=== PATIENT | female | born 1995 | race Caucasian/White ===

== ENCOUNTER 2017-04-03 09:08 | Emergency (ER) | payer BC ==
[2017-04-03 09:45] VITALS: BP 123/74
--- NOTE | 2017-04-03 10:03 | UC ---
Respiratory Complaint HPI - HPI Summary HPI Summary: chest congestion / cough x 1 week no fever, no chills, - History of Current Complaint Chief Complaint: UCRespiratory Stated Complaint: COUGH,CHEST CONGESTION Time Seen by Provider: 04/03/17 09:53 Hx Obtained From: Patient Hx Last Menstrual Period: unknown, mirena IUD Onset/Duration: Gradual Onset, Lasting Weeks - 1 Timing: Constant Severity Initially: Moderate Severity Currently: Moderate Character: Cough: Nonproductive Aggravating Factors: Exertion, Deep Breaths Alleviating Factors: Nothing Associated Signs And Symptoms: Negative: Fever, Chills, Dizziness, Calf Pain, Calf Swelling, URI, Nasal Congestion, Hoarseness, Sinus Discomfort - Allergies/Home Medications Allergies/Adverse Reactions: Allergies Allergy/AdvReac Type Severity Reaction Status Date / Time No Known Allergies Allergy Verified 04/03/17 09:45 Home Medications: Home Medications Levonorgestrel (Iud) [Mirena IUD] 04/03/17 [History] PMH/Surg Hx/FS Hx/Imm Hx Previously Healthy: Yes Other History Of: Negative For: Anticoagulant Therapy - Surgical History Surgical History: None - Family History Known Family History: Negative: Diabetes - Social History Alcohol Use: None Substance Use Type: None Smoking Status (MU): Never Smoked Tobacco - Immunization History Most Recent Influenza Vaccination: yes 2017 Review of Systems Constitutional: Negative Skin: Negative Eyes: Negative ENT: Negative Respiratory: Cough Cardiovascular: Negative Gastrointestinal: Negative Is Patient Immunocompromised?: No All Other Systems Reviewed And Are Negative: Yes Physical Exam Triage Information Reviewed: Yes Appearance: Well-Appearing, No Pain Distress, Well-Nourished Vital Signs: Initial Vital Signs Temp 98.4 F 04/03/17 09:41 Pulse 64 04/03/17 09:41 Resp 16 04/03/17 09:41 BP 123/74 04/03/17 09:41 Pulse Ox 100 04/03/17 09:41 Eye Exam: Normal Eyes: Positive: Conjunctiva Clear ENT: Positive: Normal ENT inspection, Hearing grossly normal, Pharynx normal Neck exam: Normal Neck: Positive: Supple, Nontender, No Lymphadenopathy Respiratory: Positive: Chest non-tender, Lungs clear, Normal breath sounds Cardiovascular Exam: Normal Cardiovascular: Positive: RRR, No Murmur, Pulses Normal Abdominal Exam: Normal Skin Exam: Normal UC Diagnostic Evaluation - Laboratory O2 Sat by Pulse Oximetry: 100 Respiratory Course/Dx - Differential Dx/Diagnosis Provider Diagnoses: viral bronchitis Discharge - Discharge Plan Condition: Stable Disposition: HOME Prescriptions: Guaifenesin-Codeine [Cheratussin AC] 10 syp PO Q8H PRN #120 ml MDD 30 ML PRN Reason: Cough Patient Education Materials: Acute Bronchitis (ED) Referrals: Gilson Villeda MD [Primary Care Provider] - If Needed
== END 2017-04-03 10:04 | disposition home or self-care (01) ==
LOC: UCCORT 09:08
DX: J20.8 Acute bronchitis due to other specified organisms (principal)
CPT/HCPCS: 99212; G0463

== ENCOUNTER 2017-05-15 09:02 | Emergency (ER) | payer BC ==
[2017-05-15 10:01] VITALS: BP 113/72
--- NOTE | 2017-05-15 11:12 | UC ---
Shortness of Breath HPI - HPI Summary HPI Summary: 21 y/o female with h/o productive cough x ~ 2 weeks, worsening over past several day, + night sweats/ chills, + febrile yesterday, tactile only. no PMH , no medications, IUD. NO recent ABX, infections. - History of Current Complaint Chief Complaint: UCRespiratory Stated Complaint: ST/BODY ACHES/COUGH Time Seen by Provider: 05/15/17 10:37 Hx Obtained From: Patient Hx Last Menstrual Period: unknown, mirena IUD - Allergy/Home Medications Allergies/Adverse Reactions: Allergies Allergy/AdvReac Type Severity Reaction Status Date / Time No Known Allergies Allergy Verified 05/15/17 09:55 PMH/Surg Hx/FS Hx/Imm Hx Previously Healthy: Yes Other History Of: Negative For: Anticoagulant Therapy - Surgical History Surgical History: None - Family History Known Family History: Negative: Diabetes - Social History Alcohol Use: None Substance Use Type: None Smoking Status (MU): Never Smoked Tobacco - Immunization History Most Recent Influenza Vaccination: 2017 Review of Systems Constitutional: Fever, Chills, Fatigue ENT: Sinus Congestion Respiratory: Shortness Of Breath, Cough Cardiovascular: Chest Pain - with coughing, muscular Is Patient Immunocompromised?: No All Other Systems Reviewed And Are Negative: Yes Physical Exam Triage Information Reviewed: Yes Appearance: No Pain Distress, Well-Nourished, Ill-Appearing - minimal Vital Signs: Initial Vital Signs Temp 98.3 F 05/15/17 09:55 Pulse 105 05/15/17 09:55 Resp 16 05/15/17 09:55 BP 113/72 05/15/17 09:55 Pulse Ox 98 05/15/17 09:55 Vital Signs Reviewed: Yes Eye Exam: Normal ENT: Positive: Pharyngeal erythema - mild no exudates, Nasal congestion, Nasal drainage, TM bulging, TM dull - + fluid levels b/l Neck: Positive: Supple, Nontender, Enlarged Nodes @ - b/l submand. mild tender R Respiratory: Positive: Chest non-tender, No respiratory distress, No accessory muscle use, Crackles - LLL, Wheezing - LLLL. Negative: Respiratory distress, Rhonchi, Stridor Cardiovascular: Positive: No Murmur, Pulses Normal, Tachycardia - mild Abdomen Description: Positive: Nontender, No Organomegaly, Soft. Negative: CVA Tenderness (R), CVA Tenderness (L) Psychological Exam: Normal Skin Exam: Normal Shortness of Breath Dx - Course Course Of Treatment: CXR- read as negative. due to increasing fever, chills, fatigue symptoms will treat with ABX for CAP - Differential Dx/Diagnosis Differential Diagnosis/HQI/PQRI: Asthma, Bronchitis, Chest Wall Pain, Pneumonia , Pulmonary Embolism Provider Diagnoses: mild CAP Discharge - Discharge Plan Condition: Good Disposition: HOME Prescriptions: Azithromycin TAB* [Zithromax TAB (Z-CLAIR) 250 mg #6 tabs] 2 tab PO .TODAY, THEN 1 DAILY #1 clair Patient Education Materials: Community Acquired Pneumonia (ED) Forms: *School Release Referrals: Gilson Villeda MD [Primary Care Provider] - Additional Instructions: - Follow up with primary physician within 2-4 days for re-evaluation - increase fluid intake - Antibiotics as directed - Cold medication as needed for symptoms, tylenol/ motrin for fever, chills, aches
--- NOTE | 2017-05-15 11:26 | RAD ---
INDICATION: Cough. Wheezing. COMPARISON: None TECHNIQUE: PA and lateral dual-energy views were obtained. FINDINGS: Bones/Soft Tissues: There are no acute bony findings. There is a mild pectus excavatum deformity Cardiomediastinal: The cardiomediastinal silhouette is normal. Lungs: There are no infiltrates. Pleura: There are no pleural effusions. Other: None IMPRESSION: NO ACTIVE DISEASE.
== END 2017-05-15 11:45 | disposition home or self-care (01) ==
LOC: UCCORT 09:02
DX: J18.9 Pneumonia, unspecified organism (principal); Z97.5 Presence of (intrauterine) contraceptive device
CPT/HCPCS: 71020; 99212; G0463

== ENCOUNTER 2017-07-13 09:55 | Emergency (ER) | payer BC | END 2017-07-13 13:35 | disposition left against medical advice (07) | LOC: UCCORT 09:55 | DX: R68.89 Other general symptoms and signs (principal); Z53.21 Procedure and treatment not carried out due to patient leaving prior to being seen by health care provider ==

== ENCOUNTER 2017-07-16 18:20 | Emergency (ER) | payer BC | END 2017-07-16 18:50 | disposition left against medical advice (07) | LOC: UCCORT 18:20 | DX: J98.9 Respiratory disorder, unspecified (principal); R50.9 Fever, unspecified; Z53.21 Procedure and treatment not carried out due to patient leaving prior to being seen by health care provider ==